=== PATIENT | female | born 1945 | race Caucasian/White ===

== ENCOUNTER → 2016-09-29 | Outpatient (CLI) | payer MEDICARE ==
--- NOTE | 2016-09-30 07:50 | MM ---
Reason for exam: screening (asymptomatic). Last mammogram was performed 1 year and 1 month ago. History: Patient is postmenopausal. Benign stereotactic core biopsy of the right breast, April 13, 2002. Physical Findings: A clinical breast exam by your physician is recommended on an annual basis and results should be correlated with mammographic findings. MG 3D Screening Mammo W/Cad Bilateral CC and MLO view(s) were taken. Prior study comparison: September 02, 2015, bilateral MG 3d work up w/cad [facility]. August 28, 2015, bilateral MG screening mammo w CAD. There are scattered fibroglandular densities. Previous mammotome biopsy within the right breast. Focal asymmetry stable outer left breast. No significant changes when compared with prior studies. ASSESSMENT: Benign, BI-RAD 2 RECOMMENDATION: Routine screening mammogram of both breasts in 1 year.
== END | disposition home or self-care (01) ==
LOC: RADMAMWWP 10:46
PROVIDERS: ATTEND Internal Medicine Geriatric Medicine
DX: Z12.31 Encounter for screening mammogram for malignant neoplasm of breast (principal)
CPT/HCPCS: 77063; G0202

== ENCOUNTER → 2017-11-29 | Outpatient (CLI) | payer MEDICARE ==
--- NOTE | 2017-11-30 09:04 | BD ---
EXAMINATION TYPE: Axial Bone Density DATE OF EXAM: 11/29/2017 COMPARISON: DEXA bone scan July 03, 2014 CLINICAL HISTORY: Postmenopausal female Height: 62 Weight: 170.1 FRAX RISK QUESTIONS: Alcohol (3 or more units per day): no Family History (Parent hip fracture): unsure of history Glucocorticoids (More than 3mos): no (Ex: prednisone, prednisolone, methylprednisolone, dexamethasone, and hydrocortisone). History of Fracture in Adulthood: yes Secondary Osteoporosis: 1. Type 1 Diabetes: no 2. Hyperthyroidism: no 3. Menopause before 45: no 4. Malnutrition: yes 5. Chronic liver disease: no Rheumatoid Arthritis: no Current Tobacco Use: no RISK FACTORS HISTORY OF: History of Wrist Fracture: left When: 2016 Family History of Osteoporosis: unsure Active: yes Diet low in dairy products/other sources of calcium: no Postmenopausal woman: age 52 Lost more than 2 inches in height since high school: no Frequent falls: no MEDICATIONS: gabapentin, meloxicam, reflux meds Thyroid Medications: levothyroxine How Lon years Additional History: pt has had almost all of her large intestine taken out EXAM MEASUREMENTS: Bone mineral densitometry was performed using the [employer] System. Bone mineral density as measured about the Lumbar spine is: ----- L1-L4(G/cm2): 1.075 T Score Values are as follows: ----- L2: -0.6 ----- L3: -0.7 ----- L4: -1.5 ----- L1-L4: -0.9 Bone mineral density has: decreased -3.0 % since study of: 07.03.2014 Bone mineral density about the R hip (g/cm2): 0.726 Bone mineral density about the L hip (g/cm2): 0.730 T Score values are as follows: -----R Neck: -2.2 -----L Neck: -2.2 -----R Total: -1.8 -----L Total: -1.8 Bone mineral density has: increased 0.4 % since study of: 07.03.2014 IMPRESSION: Osteopenia (T Score between -2.5 and -1) in both hips remains present. Bone density fairly stable fro m most recent study. There remains slightly increased risk of fracture and the patient may be considered for treatment. Re-Screen 2-5 years. NOTE: T-SCORE=SD OF THE YOUNG ADULT MEAN.
--- NOTE | 2017-12-01 11:03 | MM ---
Reason for exam: screening (asymptomatic). Last mammogram was performed 1 year and 2 months ago. History: Patient is postmenopausal. Benign stereotactic core biopsy of the right breast, April 13, 2002. Physical Findings: A clinical breast exam by your physician is recommended on an annual basis and results should be correlated with mammographic findings. MG 3D Screening Mammo W/Cad Bilateral CC and MLO view(s) were taken. Technologist: Quin Avila RT (R)(M) Prior study comparison: September 29, 2016, bilateral MG 3d screening mammo w/cad. September 02, 2015, bilateral MG 3d work up w/cad [facility]. There are scattered fibroglandular densities. No suspicious abnormality. No significant changes when compared with prior studies. ASSESSMENT: Negative, BI-RAD 1 RECOMMENDATION: Routine screening mammogram of both breasts in 1 year.
== END | disposition home or self-care (01) ==
LOC: RADMAMWWP 15:17
PROVIDERS: ATTEND Internal Medicine Geriatric Medicine
DX: Z12.31 Encounter for screening mammogram for malignant neoplasm of breast (principal); M85.852 Other specified disorders of bone density and structure, left thigh; M85.851 Other specified disorders of bone density and structure, right thigh
CPT/HCPCS: 77063; 77067; 77080

== ENCOUNTER 2018-09-21 11:09 | Emergency (ER) | payer MEDICARE ==
[2018-09-21 11:34] VITALS: TEMP 98.1
[2018-09-21] MEDS ORDERED: SODIUM CHLORIDE 0.9% 500 ML 500 ML IV STA (12:16)
[2018-09-21] MEDS ORDERED: ONDANSETRON 4 MG/2 ML VIAL IVP STA (12:17)
[2018-09-21] MEDS ORDERED: traMADol 50 MG TAB PO STA (12:17)
--- NOTE | 2018-09-21 12:23 | ED ---
Fall HPI - General Chief Complaint: Fall Stated Complaint: Fall, left side pain Time Seen by Provider: 09/21/18 12:09 Source: patient, RN notes reviewed Mode of arrival: wheelchair Limitations: no limitations - History of Present Illness Initial Comments: 73-year-old female presents emergency Department with chief complaint of trip and fall. Patient states she was cleaning states that she was walking backwards. Patient states that she tripped and fell. Patient states she struck her face on the corner of a door but also fell onto left-sided abdomen. Patient states she has severe abdominal pain. Patient denies any hematuria or dysuria. Patient denies any loss of consciousness that she knows of. Denies any back pain no upper extremity injuries no chest pain. - Related Data Home Medications Medication Instructions Recorded Confirmed Calcium Carb-Vit D 500Mg-200Un 1 tab PO DAILY 06/23/15 09/21/18 [Oscal 500+D] Meloxicam [Mobic] 7.5 mg PO BID 06/23/15 09/21/18 Multivit-Min/FA/Lycopen/Lutein 1 tab PO DAILY 06/23/15 09/21/18 [Centrum Silver Tablet] Omeprazole 40 mg PO AC-BRKFST 06/23/15 09/21/18 Atorvastatin Calcium [Lipitor] 10 mg PO HS 09/21/18 09/21/18 Citalopram Hydrobromide [CeleXA] 20 mg PO DAILY 09/21/18 09/21/18 Gabapentin [Neurontin] 100 mg PO QAM 09/21/18 09/21/18 Gabapentin [Neurontin] 200 mg PO HS 09/21/18 09/21/18 Levothyroxine Sodium [Synthroid] 100 mcg PO DAILY 09/21/18 09/21/18 clonazePAM 0.5 mg PO DAILY 09/21/18 09/21/18 Allergies Allergy/AdvReac Type Severity Reaction Status Date / Time codeine AdvReac Hallucinati Verified 09/21/18 12:22 ons opiates AdvReac Hallucinati Uncoded 09/21/18 11:34 ons Review of Systems ROS Statement: Those systems with pertinent positive or pertinent negative responses have been documented in the HPI. ROS Other: All systems not noted in ROS Statement are negative. Past Medical History Past Medical History: Fibromyalgia, Osteoarthritis (OA), Thyroid Disorder Additional Past Medical History / Comment(s): bowel History of Any Multi-Drug Resistant Organisms: None Reported Past Surgical History: Adenoidectomy, Bowel Resection, Cholecystectomy, Hernia Repair, Orthopedic Surgery, Tonsillectomy, Tubal Ligation Additional Past Surgical History / Comment(s): Bilat knee replacements, rotator cuff scope, Puja, Surgery on sinus, Colostomy and reveral 2013 [place] right breast,deviated septum,right hand arthoscopy,carpel tunnel right thumb bone removed replaced with tendon Past Anesthesia/Blood Transfusion Reactions: No Reported Reaction Past Psychological History: No Psychological Hx Reported Smoking Status: Never smoker Past Alcohol Use History: None Reported Past Drug Use History: None Reported - Past Family History Mother Family Medical History: Cancer General Exam Limitations: no limitations General appearance: alert, in no apparent distress Head exam: Present: atraumatic, normocephalic, normal inspection Eye exam: Present: normal appearance, PERRL, EOMI. Absent: scleral icterus, conjunctival injection, periorbital swelling ENT exam: Present: normal exam, normal oropharynx, mucous membranes moist, TM's normal bilaterally Neck exam: Present: normal inspection, full ROM. Absent: tenderness, meningismus, lymphadenopathy Respiratory exam: Present: normal lung sounds bilaterally. Absent: respiratory distress, wheezes, rales, rhonchi, stridor Cardiovascular Exam: Present: regular rate, normal rhythm, normal heart sounds. Absent: systolic murmur, diastolic murmur, rubs, gallop, clicks GI/Abdominal exam: Present: soft, tenderness (Moderate left-sided, left lower quadrant tenderness), normal bowel sounds. Absent: distended, guarding, rebound, rigid Extremities exam: Present: normal inspection, full ROM, normal capillary refill. Absent: tenderness, pedal edema, joint swelling, calf tenderness Back exam: Present: full ROM. Absent: tenderness, CVA tenderness (R), CVA tenderness (L), paraspinal tenderness Neurological exam: Present: alert, oriented X3, CN II-XII intact Skin exam: Present: warm, dry, intact, normal color. Absent: rash Course Vital Signs 09/21/18 09/21/18 11:31 13:27 Temperature 98.1 F Pulse Rate 58 L 60 Respiratory 16 20 Rate Blood Pressure 175/84 190/95 O2 Sat by Pulse 99 99 Oximetry Medical Decision Making - Medical Decision Making 73-year-old female presented emergency from for a trip and fall. Patient went left-sided abdominal pain, facial injury. CT of the head, neck and abdomen pelvis were ordered which shows no acute process. Patient has facial contusion, abdominal contusion. Patient we discharged return parameters discussed. - Lab Data Result diagrams: 09/21/18 12:49 09/21/18 12:49 Lab Results 09/21/18 09/21/18 09/21/18 Range/Units 12:49 12:49 13:43 WBC 10.6 (3.8-10.6) k/uL RBC 3.86 (3.80-5.40) m/uL Hgb 12.5 (11.4-16.0) gm/dL Hct 37.3 (34.0-46.0) % MCV 96.6 (80.0-100.0) fL MCH 32.4 (25.0-35.0) pg MCHC 33.5 (31.0-37.0) g/dL RDW 13.9 (11.5-15.5) % Plt Count 234 (150-450) k/uL Neutrophils % 74 % Lymphocytes % 16 % Monocytes % 6 % Eosinophils % 1 % Basophils % 1 % Neutrophils # 7.8 H (1.3-7.7) k/uL Lymphocytes # 1.7 (1.0-4.8) k/uL Monocytes # 0.6 (0-1.0) k/uL Eosinophils # 0.1 (0-0.7) k/uL Basophils # 0.1 (0-0.2) k/uL Sodium 141 (137-145) mmol/L Potassium 5.0 (3.5-5.1) mmol/L Chloride 109 H (98-107) mmol/L Carbon Dioxide 22 (22-30) mmol/L Anion Gap 10 mmol/L BUN 22 H (7-17) mg/dL Creatinine 1.45 H (0.52-1.04) mg/dL Est GFR (CKD-EPI)AfAm 41 (>60 ml/min/1.73 sqM) Est GFR (CKD-EPI)NonAf 36 (>60 ml/min/1.73 sqM) Glucose 89 (74-99) mg/dL Calcium 9.4 (8.4-10.2) mg/dL Total Bilirubin 0.9 (0.2-1.3) mg/dL AST 26 (14-36) U/L ALT 36 (9-52) U/L Alkaline Phosphatase 114 (38-126) U/L Total Protein 6.7 (6.3-8.2) g/dL Albumin 4.0 (3.5-5.0) g/dL Urine Color Yellow Urine Appearance Clear (Clear) Urine pH 5.5 (5.0-8.0) Ur Specific Proctor 1.020 (1.001-1.035) Urine Protein 1+ H (Negative) Urine Glucose (UA) Negative (Negative) Urine Ketones Negative (Negative) Urine Blood Negative (Negative) Urine Nitrite Negative (Negative) Urine Bilirubin Negative (Negative) Urine Urobilinogen <2.0 (<2.0) mg/dL Ur Leukocyte Esterase Moderate H (Negative) Urine WBC 61 H (0-5) /hpf Urine Bacteria Many H (None) /hpf Urine Mucus Rare H (None) /hpf Disposition Clinical Impression: Fall, Head injury, Abdominal contusion Disposition: HOME SELF-CARE Condition: Stable Instructions (If sedation given, give patient instructions): Fall Prevention for Older Adults (ED) Additional Instructions: Please return to the Emergency Department if symptoms worsen or any other concerns. Is patient prescribed a controlled substance at d/c from ED?: No Referrals: Crescencio Ott MD [Primary Care Provider] - 1-2 days Time of Disposition: 14:32
[2018-09-21 13:08] LABS: Basophils # (A) 0.1 k/uL (0-0.2); Basophils % (A) 1 %; Eosinophils # (A) 0.1 k/uL (0-0.7); Eosinophils % (A) 1 %; HCT 37.3 % (34.0-46.0); HGB 12.5 gm/dL (11.4-16.0); Lymphocytes # (A) 1.7 k/uL (1.0-4.8); Lymphocytes % (A) 16 %; MCH 32.4 pg (25.0-35.0); MCHC 33.5 g/dL (31.0-37.0); MCV 96.6 fL (80.0-100.0); Mean Platelet Volume 7.8; Monocytes # (A) 0.6 k/uL (0-1.0); Monocytes % (A) 6 %; Neutrophils # (A) 7.8 k/uL (1.3-7.7); Neutrophils % (A) 74 %; Platelet Count 234 k/uL (150-450); RBC 3.86 m/uL (3.80-5.40); RDW 13.9 % (11.5-15.5); WBC 10.6 k/uL (3.8-10.6)
[2018-09-21 13:20] LABS: Calcium 9.4 mg/dL (8.4-10.2); Total Bilirubin 0.9 mg/dL (0.2-1.3); Total Protein 6.7 g/dL (6.3-8.2)
[2018-09-21 13:29] VITALS: RESP 20
[2018-09-21 14:02] LABS: Appearance,Urine Clear (Clear); Bacteria,Urine Many /hpf; Bilirubin,Urine Negative (Negative); Blood,Urine Negative (Negative); Color,Urine Yellow; Glucose,Urine (UA) Negative (Negative); Ketones,Urine Negative (Negative); Leukocyte Esterase,Urine Moderate (Negative); Mucus,Urine Rare /hpf; Nitrite,Urine Negative (Negative); PH, Urine 5.5 (5.0-8.0); Protein,Urine 1+ (Negative); Urobilinogen,Urine <2.0 mg/dL (<2.0); WBC,Urine 61 /hpf (0-5)
--- NOTE | 2018-09-21 14:14 | CT ---
EXAMINATION TYPE: CT brain cspine wo con DATE OF EXAM: 09/21/2018 COMPARISON: CT brain September 14, 2014 HISTORY: Fall, Lt side CT DLP: 1244.1 mGycm. Automated Exposure Control for Dose Reduction was Utilized. TECHNIQUE: CT scan of the head and cervical spine are performed without contrast. FINDINGS: There is no acute intracranial hemorrhage or midline shift identified. Ventricular and gaines lcal prominence redemonstrated. Low-attenuation periventricular white matter again seen. The globes a re intact and the visualized sinuses are clear. The calvarium is intact. Cervical spine is visualized in its entirety from C1 through upper thoracic levels and demonstrates s light grade 1 retrolisthesis of C3 on C4 and grade 1 anterolisthesis of C5 on C6 without evidence of acute fracture or dislocation. Prevertebral soft tissue appears within normal limits. The C1-C2 art iculation is within normal limits on the coronal images. Vertebral body heights are maintained. There is mild to moderate disc space narrowing C3-C4 and C4-C5 levels with posterior disc herniations effacing anterior thecal sac at these levels on sagittal imag es. Review of axial images shows multilevel uncovertebral facet degenerative changes contributing to multilevel bilateral neural foraminal narrowing most prominent at left C5-C6 level. Normal sized thyr oid gland is not identified suspect surgically or congenitally atrophic. Correlate clinically. Lung a pices show no pneumothorax. IMPRESSION: 1. There is no acute fracture or dislocation evident in the cervical spine. 2. No acute intracranial hemorrhage or midline shift is seen. Stable mild diffuse cerebral atrophy an d chronic small vessel ischemic change.
--- NOTE | 2018-09-21 14:26 | CT ---
EXAMINATION TYPE: CT abdomen pelvis wo con DATE OF EXAM: 09/21/2018 HISTORY: Abdominal pain not further specified. CT DLP: 470.9 mGycm. Automated Exposure Control for Dose Reduction was Utilized. TECHNIQUE: CT scan of the abdomen and pelvis is performed without oral or IV contrast. COMPARISON: CT abdomen and pelvis June 25, 2015 FINDINGS: Within the limitations of a non-contrast study, the following observations are made. LUNG BASES: There is left basilar linear scarring and/or atelectasis redemonstrated. LIVER/GB: Cholecystectomy clips are redemonstrated. PANCREAS: Hypodense 1.2 cm pancreatic head lesion axial image 25 is small in size from prior study ax ial image 27. Etiology uncertain. Correlate clinically. SPLEEN: No significant abnormality is seen. ADRENALS: No significant abnormality is seen. KIDNEYS: No renal stones or hydronephrosis. BOWEL: Evaluation of bowel is suboptimal secondary to lack of enteric contrast. There is some gas-arnold led prominence of the transverse colon in the anterior upper to mid abdomen similar to prior but less prominent. Surgical sutures near this level proximal transverse colon axial image 28 are noted. Ther e is fluid filled prominence of the right: Suggesting diarrhea or colitis. Correlate clinically. GENITAL ORGANS: Anteverted uterus. LYMPH NODES: No greater than 1cm abdominal or pelvic lymph nodes are appreciated. OSSEOUS STRUCTURES: Disc herniation L5-S1 level sagittal image 59. Mild to moderate multilevel anteri or and lateral spurring in the lower thoracic spine. OTHER: Thinning of the rectus sheath and muscles anteriorly remains present IMPRESSION: Overall no bowel obstruction. Right-sided diarrhea or colitis. Persistent transverse colo sari gas-filled dilatation there are sutures less prominent than prior study.
[2018-09-21 15:08] VITALS: BP 164/69; PULSE 51
== END 2018-09-21 15:07 | disposition home or self-care (01) ==
LOC: EC 11:09
DX: S00.83XA Contusion of other part of head, initial encounter (principal); S30.1XXA Contusion of abdominal wall, initial encounter; M79.7 Fibromyalgia; M19.90 Unspecified osteoarthritis, unspecified site; E07.9 Disorder of thyroid, unspecified; Z90.49 Acquired absence of other specified parts of digestive tract; Z96.653 Presence of artificial knee joint, bilateral; Z98.51 Tubal ligation status; Z98.890 Other specified postprocedural states; Z79.1 Long term (current) use of non-steroidal anti-inflammatories (NSAID); Z79.890 Hormone replacement therapy; Z79.899 Other long term (current) drug therapy; Z88.5 Allergy status to narcotic agent; W01.198A Fall on same level from slipping, tripping and stumbling with subsequent striking against other object, initial encounter; Y92.009 Unspecified place in unspecified non-institutional (private) residence as the place of occurrence of the external cause; Y93.E5 Activity, floor mopping and cleaning; Y93.01 Activity, walking, marching and hiking
CPT/HCPCS: 99284; 96374; 36415; 80053; 85025; 81001; 72125; 70450; 74176; J2405

== ENCOUNTER → 2019-01-06 | Outpatient (CLI) | payer MEDICARE ==
--- NOTE | 2019-01-10 13:34 | MM ---
Reason for exam: screening (asymptomatic). Last mammogram was performed 1 year and 1 month ago. History: Patient is postmenopausal. Benign stereotactic core biopsy of the right breast, April 13, 2002. MG 3D Screening Mammo W/Cad Bilateral CC and MLO view(s) were taken. Prior study comparison: November 29, 2017, bilateral MG 3d screening mammo w/cad. September 29, 2016, bilateral MG 3d screening mammo w/cad. There are scattered fibroglandular densities. No significant new finding when compared with prior studies. ASSESSMENT: Negative, BI-RAD 1 RECOMMENDATION: Routine screening mammogram of both breasts in 1 year.
== END | disposition home or self-care (01) ==
LOC: RADMAMWWP 12:56
PROVIDERS: ATTEND Internal Medicine Geriatric Medicine
DX: Z12.31 Encounter for screening mammogram for malignant neoplasm of breast (principal)
CPT/HCPCS: 77063; 77067

== ENCOUNTER 2019-04-11 12:48 | Emergency (ER) | payer MEDICARE ==
--- NOTE | 2019-04-11 14:35 | ED ---
Lower Extremity Injury HPI - General Source: patient Mode of arrival: wheelchair Limitations: no limitations <Tatiana Shirley - Last Filed: 04/11/19 19:52> <Ben Syed - Last Filed: 04/12/19 16:17> - General Chief Complaint: Extremity Injury, Lower Stated Complaint: RT ARM PROBLEM, NOT ABLE TO STAND LEFT LEG Time Seen by Provider: 04/11/19 13:36 - History of Present Illness Initial Comments: Patient is a 73-year-old female presenting to the emergency Department with complaints of pain in her left hip since yesterday. 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 Patient states she put her leg back in the car sat for a minute and then attempted to get out of a can and resulted in the same kind of pain. Patient has been walking with a cane since yesterday secondary to the pain. Patient states the pain does radiate around to her left lower back and on top of her gluteal. Patient denies any previous injuries or surgeries to her left hip. Patient does have bilateral knee replacements. Patient denies fever, chills, recent travel, recent surgeries. Patient has no other complaints at this time. Upon arrival to ER, vital signs are stable. (Tatiana Shirley) - Related Data Home Medications Medication Instructions Recorded Confirmed Calcium Carb-Vit D 500Mg-200Un 1 tab PO DAILY 06/23/15 04/11/19 [Oscal 500+D] Multivit-Min/FA/Lycopen/Lutein 1 tab PO DAILY 06/23/15 04/11/19 [Centrum Silver Tablet] Atorvastatin Calcium [Lipitor] 10 mg PO HS 09/21/18 04/11/19 Citalopram Hydrobromide [CeleXA] 20 mg PO DAILY 09/21/18 04/11/19 Levothyroxine Sodium [Synthroid] 100 mcg PO DAILY 09/21/18 04/11/19 Albuterol Inhaler [Ventolin Hfa 1 - 2 puff INHALATION RT-Q6H PRN 04/11/19 04/11/19 Inhaler] Magnesium 200 mg PO BID 04/11/19 04/11/19 Previous Rx's Medication Instructions Recorded Meloxicam [Mobic] 7.5 mg PO BID 15 Days #30 tab 04/11/19 methylPREDNISolone [Medrol Dose 4 mg PO DIRECTED #1 pack 04/11/19 Pack] Allergies Allergy/AdvReac Type Severity Reaction Status Date / Time codeine AdvReac Hallucinati Verified 04/11/19 14:26 ons opiates AdvReac Hallucinati Uncoded 09/21/18 11:34 ons Review of Systems ROS Other: All systems not noted in ROS Statement are negative. <Tatiana Shirley - Last Filed: 04/11/19 19:52> ROS Other: All systems not noted in ROS Statement are negative. <Ben Syed - Last Filed: 04/12/19 16:17> ROS Statement: Those systems with pertinent positive or pertinent negative responses have been documented in the HPI. Past Medical History Past Medical History: Fibromyalgia, Osteoarthritis (OA), Thyroid Disorder Additional Past Medical History / Comment(s): bowel History of Any Multi-Drug Resistant Organisms: None Reported Past Surgical History: Adenoidectomy, Bowel Resection, Cholecystectomy, Hernia Repair, Orthopedic Surgery, Tonsillectomy, Tubal Ligation Additional Past Surgical History / Comment(s): Bilat knee replacements, rotator cuff scope, Puja, Surgery on sinus, Colostomy and reveral 2014 [place] right breast,deviated septum,right hand arthoscopy,carpel tunnel right thumb bone removed replaced with tendon Past Anesthesia/Blood Transfusion Reactions: No Reported Reaction Past Psychological History: No Psychological Hx Reported Smoking Status: Never smoker Past Alcohol Use History: None Reported Past Drug Use History: None Reported - Past Family History Mother Family Medical History: Cancer <Tatiana Shirley - Last Filed: 04/11/19 19:52> General Exam Limitations: no limitations <Tatiana Shirley - Last Filed: 04/11/19 19:52> - General Exam Comments Initial Comments: GENERAL: Well-appearing, well-nourished and in no acute distress. HEAD: Atraumatic, normocephalic. EYES: Pupils equal round and reactive to light, extraocular movements intact, sclera anicteric, conjunctiva are normal. ENT: Nares patent, oropharynx clear without exudates. Moist mucous membranes. NECK: Normal range of motion, supple without lymphadenopathy or JVD. LUNGS: Breath sounds clear to auscultation bilaterally and equal. No wheezes rales or rhonchi. HEART: Regular rate and rhythm without murmurs, rubs or gallops. ABDOMEN: Soft, nontender, normoactive bowel sounds. No guarding, no rebound. No masses appreciated. EXTREMITIES: Pain with palpation of the anterior and lateral left hip. Pain with passive and active range of motion of the hip. Range of motion is limited secondary to pain and right. Patient is neurovascular intact. There is no swelling of the lower leg. Patient has mild pain to palpation of the left SI joint. NEUROLOGICAL: Cranial nerves II through XII grossly intact. Normal speech. PSYCH: Normal mood, normal affect. SKIN: Warm, Dry, normal turgor, no rashes or lesions noted. (Tatiana Shirley) Course <Ben Syed - Last Filed: 04/12/19 16:17> Vital Signs 04/11/19 04/11/19 04/11/19 13:12 15:17 15:50 Temperature 98.1 F 98.2 F Pulse Rate 62 62 63 Respiratory 18 16 18 Rate Blood Pressure 154/78 169/103 163/92 O2 Sat by Pulse 99 100 100 Oximetry - Reevaluation(s) Reevaluation #1: 04/12/19 16:17 PA supervision: I proceeded [id number] evaluation the patient did discuss the findings with her and her family. Patient's clinical exam is consistent with sciatica did have reproducible tenderness palpation of the SI joint and buttock consistent with the sciatica with. No other neuro findings were appreciated on my exam. I do agree with the assessment and plan (Ben Syed) Medical Decision Making <Tatiana Shirley - Last Filed: 04/11/19 19:52> - Medical Decision Making Patient is a 73-year-old female presenting with left hip and left low back pain that started yesterday. Patient has no prior history of her lumbar spine or left hip. Patient does have bilateral knee replacements. X-rays left hip revealed no acute abnormalities. There is some mild joint space narrowing. Lumbar spine x-rays show a facet arthroplasty the with grade 1 anterolishesis at L5-S1. No vertebral compression collapse. Discussed with patient this is most likely left-sided sciatica and/or lumbar strain. Patient will be given Toradol and a short course of steroids. Patient stable for discharge at this time and she doesn't agreement with this plan and care. Case is discussed with Dr. Syed who evaluated the patient and agrees with this plan of care. Return parameters were discussed with the patient and she verbalized understanding. (Tatiana Shirley) Disposition Is patient prescribed a controlled substance at d/c from ED?: No <Tatiana Shirley - Last Filed: 04/11/19 19:52> <Ben Syed - Last Filed: 04/12/19 16:17> Clinical Impression: Left-sided low back pain with sciatica, Left hip pain Disposition: HOME SELF-CARE Condition: Stable Instructions (If sedation given, give patient instructions): Sciatica (ED) Additional Instructions: Please return to the Emergency Department if symptoms worsen or any other concerns. Take steroids and anti-inflammatories as discussed. Follow up with PCP if symptoms do not improve in 1-2 weeks. Prescriptions: methylPREDNISolone [Medrol Dose Pack] 4 mg PO DIRECTED #1 pack Meloxicam [Mobic] 7.5 mg PO BID 15 Days #30 tab Referrals: Crescencio Ott MD [Primary Care Provider] - 1-2 days
--- NOTE | 2019-04-11 14:56 | XR ---
EXAMINATION TYPE: XR lumbar spine 2 or 3V DATE OF EXAM: 04/11/2019 COMPARISON: 04/28/2018 HISTORY: 73-year-old female with pain TECHNIQUE: 3 views FINDINGS: Cholecystectomy clips. Levoconvex scoliotic curvature. Facet arthropathy throughout the lumbar spine. Grade 1 anterolisthesis L5-S1. Vertebral body heights are preserved. Remaining alignment is maintain ed. Atherosclerotic calcifications throughout the aorta. IMPRESSION: Facet arthropathy with grade 1 anterolisthesis at L5-S1. Levoconvex scoliosis redemonstrated. No vert ebral compression collapse.
--- NOTE | 2019-04-11 14:57 | XR ---
EXAMINATION TYPE: XR Hip Complete LT DATE OF EXAM: 04/11/2019 COMPARISON: NONE HISTORY: 73-year-old female with pain TECHNIQUE: 2 views FINDINGS: Mild axial joint space narrowing and mild marginal spurring about the acetabulum. No acute fracture, subluxation, dislocation. Probable phleboliths lateral left hip soft tissues. IMPRESSION: Mild degenerative joint space narrowing of the left hip. No acute osseous abnormality seen.
[2019-04-11] MEDS ORDERED: MELOXICAM 7.5 MG TAB PO STA (14:58)
[2019-04-11] MEDS ORDERED: ACETAMINOPHEN TAB 325 MG TAB PO STA (14:59)
[2019-04-11] MEDS ORDERED: KETOROLAC 30 MG/ML 1 ML VIAL IM STA (15:37)
[2019-04-11 15:53] VITALS: BP 163/92; PULSE 63; RESP 18; TEMP 98.2
== END 2019-04-11 15:50 | disposition home or self-care (01) ==
LOC: EC 12:48
DX: M54.42 Lumbago with sciatica, left side (principal); M25.852 Other specified joint disorders, left hip; M43.17 Spondylolisthesis, lumbosacral region; M19.90 Unspecified osteoarthritis, unspecified site; E07.9 Disorder of thyroid, unspecified; Z88.5 Allergy status to narcotic agent; Z79.890 Hormone replacement therapy; Z79.899 Other long term (current) drug therapy; Z96.653 Presence of artificial knee joint, bilateral; X50.9XXA Other and unspecified overexertion or strenuous movements or postures, initial encounter; Y93.89 Activity, other specified; Y92.810 Car as the place of occurrence of the external cause
CPT/HCPCS: 72100; 73502; 99283; 96372; J1885

== ENCOUNTER → 2020-02-15 | Outpatient (CLI) | payer MEDICARE ==
--- NOTE | 2020-02-22 09:32 | MM ---
Reason for exam: screening (asymptomatic). Last mammogram was performed 1 year and 1 month ago. History: Patient is postmenopausal. Benign stereotactic core biopsy of the right breast, April 13, 2002. Physical Findings: A clinical breast exam by your physician is recommended on an annual basis and results should be correlated with mammographic findings. MG 3D Screening Mammo W/Cad Bilateral CC and MLO view(s) were taken. Prior study comparison: January 06, 2019, bilateral MG 3d screening mammo w/cad. November 29, 2017, bilateral MG 3d screening mammo w/cad. There are scattered fibroglandular densities. Fibroglandular tissue remains concentrated in the upper outer quadrants. No significant changes when compared with prior studies. ASSESSMENT: Benign, BI-RAD 2 RECOMMENDATION: Routine screening mammogram of both breasts in 1 year.
== END | disposition home or self-care (01) ==
LOC: RADMAMWWP 14:23
PROVIDERS: ATTEND Internal Medicine Geriatric Medicine
DX: Z12.31 Encounter for screening mammogram for malignant neoplasm of breast (principal)
CPT/HCPCS: 77063; 77067

== ENCOUNTER 2020-05-27 14:25 | Emergency (ER) | payer MEDICARE ==
[2020-05-27] MEDS ORDERED: SODIUM CHLORIDE 0.9% 500 ML 500 ML IV STA (15:36)
[2020-05-27 16:08] LABS: Basophils % (A) 0 %; Eosinophils # (A) 0.1 k/uL (0-0.7); Eosinophils % (A) 1 %; HCT 37.8 % (34.0-46.0); HGB 12.8 gm/dL (11.4-16.0); Lymphocytes # (A) 0.8 k/uL (1.0-4.8); Lymphocytes % (A) 9 %; MCHC 33.8 g/dL (31.0-37.0); MCV 97.4 fL (80.0-100.0); Mean Platelet Volume 7.5; Monocytes # (A) 0.4 k/uL (0-1.0); Monocytes % (A) 5 %; Neutrophils # (A) 7.6 k/uL (1.3-7.7); Neutrophils % (A) 84 %; Platelet Count 252 k/uL (150-450); RBC 3.89 m/uL (3.80-5.40); RDW 12.6 % (11.5-15.5); WBC 9.1 k/uL (3.8-10.6)
[2020-05-27 16:23] LABS: Albumin 3.8 g/dL (3.5-5.0); Magnesium 1.8 mg/dL (1.6-2.3); Potassium 4.1 mmol/L (3.5-5.1); Total Bilirubin 0.3 mg/dL (0.2-1.3); Total Protein 6.3 g/dL (6.3-8.2)
--- NOTE | 2020-05-27 16:40 | ED ---
General Adult HPI - General Chief complaint: Head Injury Stated complaint: Fall/Head Injury-Sent by PCP Time Seen by Provider: 05/27/20 15:12 Source: patient, RN notes reviewed Mode of arrival: wheelchair Limitations: no limitations - History of Present Illness Initial comments: 74-year-old female with a past medical history of fibromyalgia, thyroid disorder presents to the emergency room for a chief complaint of head injury. Patient reports that 10 days ago she fell. Patient states that she was getting up from the chair and has bad shoulders so could not push off with her arms. States she was using her feet to anchor herself under the table and tripped. Patient fell and hit her head. She did knock herself out and woke up under her [place] tree. States that she does not take blood thinners and was not evaluated at that time. Patient states she has been having headaches with decreased appetite and weakness. She was seen by Dr. Hooks, her surgeon today for shoulder pain and he recommended she come to the ER given this fall. Patient has not fallen since. Patient also reports as is noted in the triage note that she couldn't open the left side of her mouth yesterday however this was because she was having pain in the TMJ area and was getting locked up. She denies any drooping or focal weakness. Patient has no other complaints at this time including shortness of breath, chest pain, abdominal pain, nausea or vomiting, or visual changes. - Related Data Home Medications Medication Instructions Recorded Confirmed Calcium Carb-Vit D 500Mg-200Un 1 tab PO DAILY 06/23/15 04/11/19 [Oscal 500+D] Multivit-Min/FA/Lycopen/Lutein 1 tab PO DAILY 06/23/15 04/11/19 [Centrum Silver Tablet] Atorvastatin Calcium [Lipitor] 10 mg PO HS 09/21/18 04/11/19 Citalopram Hydrobromide [CeleXA] 20 mg PO DAILY 09/21/18 04/11/19 Levothyroxine Sodium [Synthroid] 100 mcg PO DAILY 09/21/18 04/11/19 Albuterol Inhaler (Mhu) [Ventolin 1 - 2 puff INHALATION RT-Q6H PRN 04/11/19 04/11/19 Hfa Inhaler] Magnesium 200 mg PO BID 04/11/19 04/11/19 Previous Rx's Medication Instructions Recorded Meloxicam [Mobic] 7.5 mg PO BID 15 Days #30 tab 04/11/19 methylPREDNISolone [Medrol Dose 4 mg PO DIRECTED #1 pack 04/11/19 Pack] Cephalexin [Keflex] 500 mg PO BID 7 Days #14 cap 05/27/20 Allergies Allergy/AdvReac Type Severity Reaction Status Date / Time codeine AdvReac Hallucinati Verified 05/27/20 14:40 ons opiates AdvReac Hallucinati Uncoded 05/27/20 14:40 ons Review of Systems ROS Statement: Those systems with pertinent positive or pertinent negative responses have been documented in the HPI. ROS Other: All systems not noted in ROS Statement are negative. Past Medical History Past Medical History: Fibromyalgia, Osteoarthritis (OA), Thyroid Disorder Additional Past Medical History / Comment(s): bowel History of Any Multi-Drug Resistant Organisms: None Reported Past Surgical History: Adenoidectomy, Bowel Resection, Cholecystectomy, Hernia Repair, Orthopedic Surgery, Tonsillectomy, Tubal Ligation Additional Past Surgical History / Comment(s): Bilat knee replacements, rotator cuff scope, Puja, Surgery on sinus, Colostomy and reveral 2014 [place] right breast,deviated septum,right hand arthoscopy,carpel tunnel right thumb bone removed replaced with tendon Past Anesthesia/Blood Transfusion Reactions: No Reported Reaction Past Psychological History: No Psychological Hx Reported Past Alcohol Use History: None Reported Past Drug Use History: None Reported - Past Family History Mother Family Medical History: Cancer General Exam Limitations: no limitations General appearance: alert, in no apparent distress Head exam: Present: atraumatic, normocephalic, normal inspection Eye exam: Present: normal appearance, PERRL, EOMI. Absent: scleral icterus, conjunctival injection, periorbital swelling ENT exam: Present: normal exam, mucous membranes moist Neck exam: Present: normal inspection, full ROM. Absent: tenderness, meningismus, lymphadenopathy Respiratory exam: Present: normal lung sounds bilaterally. Absent: respiratory distress, wheezes, rales, rhonchi, stridor Cardiovascular Exam: Present: regular rate, normal rhythm, normal heart sounds. Absent: systolic murmur, diastolic murmur, rubs, gallop, clicks GI/Abdominal exam: Present: soft, normal bowel sounds. Absent: distended, tenderness, guarding, rebound, rigid Neurological exam: Present: alert, oriented X3, normal gait, other (GCS 15) Expanded Patient oriented to: Present: person, place, time Speech: Present: fluid speech Cranial nerves: EOM's Intact: Normal, Tongue Deviation: Normal, Nystagmus: No rmal, Facial Sensation: Normal Motor strength exam: RUE: 5, LUE: 5, RLE: 5, LLE: 5 Eye Response: (4) open spontaneously Motor Response: (6) obeys commands Verbal Response: (5) oriented Dominic Total: 15 Course Vital Signs 05/27/20 05/27/20 14:37 19:13 Temperature 98.3 F 98.1 F Pulse Rate 82 64 Respiratory 20 18 Rate Blood Pressure 127/63 143/69 O2 Sat by Pulse 100 98 Oximetry EKG Findings - EKG Comments: EKG Findings:: Normal sinus rhythm, ventricular rate 66, LA interval 122, QTc 413 Medical Decision Making - Medical Decision Making HPI physical exam as documented. Patient is well-appearing. Vitals are stable. CBC is unremarkable. CMP does show chronic kidney disease which is consistent with patient's previous laboratory evaluation. Urinalysis does show evidence of infection with [address] brain was obtained that shows an old left basal ganglion lacunar infarct. No acute intracranial process. She was able to ambulate to the bathroom without difficulty. At this time patient may have symptoms of concussion given her headaches. She also be treated for urinary tract infection which may cause weakness as patient has felt somewhat weak over the past week or so. She will follow-up with her doctor. She'll return here for any worsening symptoms. - Lab Data Result diagrams: 05/27/20 16:04 05/27/20 16:04 Lab Results 05/27/20 05/27/20 05/27/20 Range/Units 16:04 16:04 16:08 WBC 9.1 (3.8-10.6) k/uL RBC 3.89 (3.80-5.40) m/uL Hgb 12.8 (11.4-16.0) gm/dL Hct 37.8 (34.0-46.0) % MCV 97.4 (80.0-100.0) fL MCH 33.0 (25.0-35.0) pg MCHC 33.8 (31.0-37.0) g/dL RDW 12.6 (11.5-15.5) % Plt Count 252 (150-450) k/uL MPV 7.5 Neutrophils % 84 % Lymphocytes % 9 % Monocytes % 5 % Eosinophils % 1 % Basophils % 0 % Neutrophils # 7.6 (1.3-7.7) k/uL Lymphocytes # 0.8 L (1.0-4.8) k/uL Monocytes # 0.4 (0-1.0) k/uL Eosinophils # 0.1 (0-0.7) k/uL Basophils # 0.0 (0-0.2) k/uL Sodium 138 (137-145) mmol/L Potassium 4.1 (3.5-5.1) mmol/L Chloride 108 H (98-107) mmol/L Carbon Dioxide 21 L (22-30) mmol/L Anion Gap 9 mmol/L BUN 37 H (7-17) mg/dL Creatinine 1.79 H (0.52-1.04) mg/dL Est GFR (CKD-EPI)AfAm 32 (>60 ml/min/1.73 sqM) Est GFR (CKD-EPI)NonAf 28 (>60 ml/min/1.73 sqM) Glucose 107 H (74-99) mg/dL Calcium 9.0 (8.4-10.2) mg/dL Magnesium 1.8 (1.6-2.3) mg/dL Total Bilirubin 0.3 (0.2-1.3) mg/dL AST 33 (14-36) U/L ALT 36 H (4-34) U/L Alkaline Phosphatase 157 H (38-126) U/L Total Protein 6.3 (6.3-8.2) g/dL Albumin 3.8 (3.5-5.0) g/dL Urine Color Urine Appearance (Clear) Urine pH (5.0-8.0) Ur Specific [place] (1.001-1.035) Urine Protein (Negative) Urine Glucose (UA) (Negative) Urine Ketones (Negative) Urine Blood (Negative) Urine Nitrite (Negative) Urine Bilirubin (Negative) Urine Urobilinogen (<2.0) mg/dL Ur Leukocyte Esterase (Negative) Urine RBC (0-5) /hpf Urine WBC (0-5) /hpf Amorphous Sediment (None) /hpf Urine Bacteria (None) /hpf Hyaline Casts (0-2) /lpf Urine Mucus (None) /hpf Coronavirus (PCR) Not Detected (Not Detectd) 05/27/20 Range/Units 17:37 WBC (3.8-10.6) k/uL RBC (3.80-5.40) m/uL Hgb (11.4-16.0) gm/dL Hct (34.0-46.0) % MCV (80.0-100.0) fL MCH (25.0-35.0) pg MCHC (31.0-37.0) g/dL RDW (11.5-15.5) % Plt Count (150-450) k/uL MPV Neutrophils % % Lymphocytes % % Monocytes % % Eosinophils % % Basophils % % Neutrophils # (1.3-7.7) k/uL Lymphocytes # (1.0-4.8) k/uL Monocytes # (0-1.0) k/uL Eosinophils # (0-0.7) k/uL Basophils # (0-0.2) k/uL Sodium (137-145) mmol/L Potassium (3.5-5.1) mmol/L Chloride (98-107) mmol/L Carbon Dioxide (22-30) mmol/L Anion Gap mmol/L BUN (7-17) mg/dL Creatinine (0.52-1.04) mg/dL Est GFR (CKD-EPI)AfAm (>60 ml/min/1.73 sqM) Est GFR (CKD-EPI)NonAf (>60 ml/min/1.73 sqM) Glucose (74-99) mg/dL Calcium (8.4-10.2) mg/dL Magnesium (1.6-2.3) mg/dL Total Bilirubin (0.2-1.3) mg/dL AST (14-36) U/L ALT (4-34) U/L Alkaline Phosphatase (38-126) U/L Total Protein (6.3-8.2) g/dL Albumin (3.5-5.0) g/dL Urine Color Light Yellow Urine Appearance Cloudy H (Clear) Urine pH 5.0 (5.0-8.0) Ur Specific [place] 1.008 (1.001-1.035) Urine Protein Trace H (Negative) Urine Glucose (UA) Negative (Negative) Urine Ketones Negative (Negative) Urine Blood Negative (Negative) Urine Nitrite Negative (Negative) Urine Bilirubin Negative (Negative) Urine Urobilinogen <2.0 (<2.0) mg/dL Ur Leukocyte Esterase Large H (Negative) Urine RBC 3 (0-5) /hpf Urine WBC 29 H (0-5) /hpf Amorphous Sediment Rare H (None) /hpf Urine Bacteria Occasional H (None) /hpf Hyaline Casts 4 H (0-2) /lpf Urine Mucus Rare H (None) /hpf Coronavirus (PCR) (Not Detectd) Disposition Clinical Impression: Head injury, UTI (urinary tract infection) Disposition: HOME SELF-CARE Condition: Good Instructions (If sedation given, give patient instructions): Urinary Tract Infection in Women (ED), Concussion (ED) Additional Instructions: Please take antibiotic as directed. Please follow-up with your doctor in one to 2 days. Please return to the emergency room if you have any worsening symptoms. Prescriptions: Cephalexin [Keflex] 500 mg PO BID 7 Days #14 cap Is patient prescribed a controlled substance at d/c from ED?: No Referrals: Crescencio Ott MD [Primary Care Provider] - 1-2 days Time of Disposition: 18:25
--- NOTE | 2020-05-27 17:15 | CT ---
EXAMINATION TYPE: CT brain wo con DATE OF EXAM: 05/27/2020 COMPARISON: 09/21/2018 INDICATION: Weakness and falls DLP: 1068.4 mGycm, Automated exposure control for dose reduction was used. CONTRAST: None CT of the brain is performed utilizing 3 mm thick sections through the posterior fossa and 3 mm thick sections through the remaining calvarium. Study is performed within 24 hours of arrival to the hosp [facility]. No abnormal hyperdensity is present to suggest an acute intracranial hemorrhage. No mass lesion is evident. No acute infarcts are evident. Small old lacunar infarct may be within the left basal ganglion. This was present previously Ventricles and sulci are appropriate for the patient age. Paranasal sinuses and mastoid air cells within the [id number] are clear. IMPRESSIONS: 1. Old left basal ganglion lacunar infarct. 2. No acute intracranial process.
[2020-05-27 17:52] LABS: Amorphous Sediment,Urine Rare /hpf; Appearance,Urine Cloudy (Clear); Bacteria,Urine Occasional /hpf; Bilirubin,Urine Negative (Negative); Blood,Urine Negative (Negative); Color,Urine Light Yellow; Glucose,Urine (UA) Negative (Negative); Hyaline Casts,Urine 4 /lpf (0-2); Ketones,Urine Negative (Negative); Leukocyte Esterase,Urine Large (Negative); Mucus,Urine Rare /hpf; Nitrite,Urine Negative (Negative); Protein,Urine Trace (Negative); RBC,Urine 3 /hpf (0-5); Specific Gravity,Urine 1.008 (1.001-1.035); Urobilinogen,Urine <2.0 mg/dL (<2.0); WBC,Urine 29 /hpf (0-5)
[2020-05-27] MEDS ORDERED: CEPHALEXIN 500MG STARTER PACK 4 CAP BTL PO STA (18:25)
[2020-05-27 19:14] VITALS: BP 143/69; PULSE 64; RESP 18; TEMP 98.1
== END 2020-05-27 19:14 | disposition home or self-care (01) ==
LOC: EC 14:25
DX: S09.90XA Unspecified injury of head, initial encounter (principal); N39.0 Urinary tract infection, site not specified; E07.9 Disorder of thyroid, unspecified; Z20.828 Contact with and (suspected) exposure to other viral communicable diseases; Z79.890 Hormone replacement therapy; Z88.5 Allergy status to narcotic agent; Z90.49 Acquired absence of other specified parts of digestive tract; Z90.89 Acquired absence of other organs; Z96.653 Presence of artificial knee joint, bilateral; W01.10XA Fall on same level from slipping, tripping and stumbling with subsequent striking against unspecified object, initial encounter
CPT/HCPCS: 36415; 70450; 80053; 81001; 83735; 85025; 87077; 87086; 87186; 87635; 93005; 99284

== ENCOUNTER → 2022-09-22 | Outpatient (CLI) | payer MEDICARE ==
--- NOTE | 2022-09-23 08:29 | BD ---
EXAMINATION TYPE: Axial Bone Density DATE OF EXAM: 09/22/2022 CLINICAL HISTORY: 77 years old Female. ICD-10 CODE: M81.0 Osteoporosis Height: 61 Weight: 161 FRAX RISK QUESTIONS: Family History (Parent hip fracture): adopted History of Fracture in Adulthood: yes lt wrist Secondary Osteoporosis: no Rheumatoid Arthritis: yes RISK FACTORS HISTORY OF: History of Wrist Fracture: yes, left When: 1990 Family History of Osteoporosis: adopted Active: yes Diet low in dairy products/other sources of calcium: no Postmenopausal woman: yes Lost more than 2 inches in height since high school: no Frequent falls: more lately Poor Health: no MEDICATIONS: Thyroid Medications: yes Which medication: Levothyroxine How Lon+ years Additional Medications: yes vit d, Rheumatoid meds, hbp EXAM MEASUREMENTS: Bone mineral densitometry was performed using the [employer] System. Bone mineral density as measured about the Lumbar spine is: ----- L1-L4(G/cm2): 1.049 T Score Values are as follows: ----- L1: -1.7 ----- L2: -1.4 ----- L3: -0.8 ----- L4: -0.7 ----- L1-L4: -1.1 Z Score Values are as follows: ----- L1: -0.3 ----- L2: 0.0 ----- L3: 0.6 ----- L4: 0.7 ----- L1-L4: 0.3 Bone mineral density has: Decreased -2.4% since study of: 11/29/2017 Bone mineral density about the R hip (g/cm2): 0.708 Bone mineral density about the L hip (g/cm2): 0.644 T Score values are as follows: -----R Neck: -2.7 -----L Neck: -2.9 -----R Total: -2.4 -----L Total: -2.9 Z Score values are as follows: -----R Neck: -1.0 -----L Neck: -1.2 -----R Total: -0.8 -----L Total: -1.2 Bone mineral density has: Decreased -13.0% since study of: 11/29/2017 FRAX%s: The graph provided illustrates a 37.2% chance for a major osteoporotic fx and a 14.9% chance for the hips probability for fx in 10 years time. IMPRESSION: Osteoporosis (T Score less than -2.5). There is increased fracture risk and therapy is usually indicated based on age. Re-Screen 1-2 years. NOTE: T-SCORE=SD OF THE YOUNG ADULT MEAN.
--- NOTE | 2022-09-23 14:38 | MM ---
Reason for Exam: Screening (asymptomatic). Last mammogram was performed 2 year(s) and 7 month(s) ago. Patient History: Menarche at age 12. First Full-Term at age 19. Postmenopausal. Patient used Hormonal Contraceptives for 3 years. 04/13/2002, Benign Stereotactic Core Biopsy on the right side. Risk Values: Mable 5 year model risk: 1.5%. NCI Lifetime model risk: 2.9%. Prior Study Comparison: 11/29/2017 Bilateral Screening Mammogram, [facility]. 01/06/2019 Bilateral Screening Mammogram, [facility]. 02/15/2020 Bilateral Screening Mammogram, [facility]. Tissue Density: There are scattered fibroglandular densities. Findings: Analyzed By CAD. There is no suspicious group of microcalcifications or new suspicious mass in either breast. Overall Assessment: Negative, BI-RAD 1 Management: Screening Mammogram of both breasts in 1 year. A clinical breast exam by your physician is recommended on an annual basis and results should be correlated with mammographic findings. [facility] will attempt to contact patient to return for supplemental views and ultrasound if indicated. Electronically signed and approved by: Ben Pete DO
== END | disposition home or self-care (01) ==
LOC: RADMAMWWP 14:50
PROVIDERS: ATTEND Internal Medicine Geriatric Medicine
DX: Z12.31 Encounter for screening mammogram for malignant neoplasm of breast (principal); M85.89 Other specified disorders of bone density and structure, multiple sites; M81.0 Age-related osteoporosis without current pathological fracture; Z78.0 Asymptomatic menopausal state
CPT/HCPCS: 77063; 77067; 77080

== ENCOUNTER → 2023-06-24 | Outpatient (CLI) | payer MEDICARE ==
--- NOTE | 2023-06-28 11:52 | XR ---
EXAMINATION TYPE: XR KUB DATE OF EXAM: 06/24/2023 11:39 AM CLINICAL INDICATION:Female, 77 years old with history of N20.0 N20.1 Calculus kidney ureter; [facility] COMPARISON: None. TECHNIQUE: Supine radiographic view/s of the abdomen/pelvis obtained. FINDINGS: The bowel gas pattern is nonspecific, likely nonobstructive without dilated loops of small or large b owel. Fecal material and gas are demonstrated throughout the colon and rectum. Mild/moderate colonic stool burden. Suspected bowel anastomosis in the right mid abdomen. Cholecystectomy clips. Kidneys are obscured by bowel contents. There are a couple of calcific foci projecting over the right kidney up to 4 mm in size, suspicious for renal calculi. No definite calculi seen along the course o f the ureters. There are pelvic phleboliths. No gross evidence of organomegaly. No evidence of pneumoperitoneum in the limitations of supine techn ique. Osseous structures appear grossly intact. Moderate degenerative changes of the spine and mid sherie mbar levoscoliosis. Mild bilateral hip arthropathy. IMPRESSION: 1. Nonspecific, likely nonobstructive bowel gas pattern. Mild to moderate colonic stool burden. 2. Possible small right renal calculi.
== END | disposition home or self-care (01) ==
LOC: RADXRMAIN 11:10
PROVIDERS: ATTEND Urology
DX: N20.2 Calculus of kidney with calculus of ureter (principal); R19.5 Other fecal abnormalities
CPT/HCPCS: 74018

== ENCOUNTER → 2023-07-01 | Outpatient (CLI) | payer MEDICARE ==
--- NOTE | 2023-07-01 11:24 | CT ---
EXAMINATION TYPE: CT abdomen pelvis wo con DATE OF EXAM: 07/01/2023 HISTORY: Unspecified renal colic, pt c/o back pain, LT flank pain, pain urinating. Renal stone protoc ol CT DLP: 961 mGycm. Automated Exposure Control for Dose Reduction was Utilized. TECHNIQUE: CT scan of the abdomen and pelvis is performed without oral or IV contrast. COMPARISON: Prior CT September 21, 2018 FINDINGS: Within the limitations of a non-contrast study, the following observations are made. LUNG BASES: No significant abnormality is appreciated. LIVER/GB: Cholecystectomy clips are redemonstrated. PANCREAS: Stable 1.3 cm hypodense lesion in the pancreatic head axial image 54. SPLEEN: Slightly smaller spleen with lobulated peripheral contour containing faint curvilinear calcif ications. ADRENALS: No significant abnormality is seen. KIDNEYS: Cortical thinning bilaterally. No renal stones or hydronephrosis seen bilaterally. Findings consistent with product of chronic medical renal disease. No intraluminal calculus in the bladder. BOWEL: Ligament of Treitz is not in normal position. Findings consistent with underlying malrotation. No suspicious small or large bowel dilatation. Slight gaseous prominence of the transverse colon in the midabdomen with air and focal eventration. Surgical sutures to the right of this. Findings simila r to prior study. Surgical sutures in the distal colon is redemonstrated near axial image 101. A few diverticula in the sigmoid colon in the pelvis. No CT evidence for acute epiglottitis. GENITAL ORGANS: No gross abnormality seen. LYMPH NODES: No greater than 1cm abdominal or pelvic lymph nodes are appreciated. OSSEOUS STRUCTURES: Slight scoliotic curvature. Posterior disc herniation L5-S1 level. OTHER: Mild/moderate calcified plaque of the aorta extends into branch vessels. IMPRESSION: Evidence of chronic medical renal disease. No renal stones or hydronephrosis is seen bila terally. No suspicious new or acute finding identified on noncontrast CT.
== END | disposition home or self-care (01) ==
LOC: RADCTMAIN 09:24
PROVIDERS: ATTEND Urology
DX: N28.89 Other specified disorders of kidney and ureter (principal); N23 Unspecified renal colic; R31.1 Benign essential microscopic hematuria
CPT/HCPCS: 74176

== ENCOUNTER → 2023-09-24 | Outpatient (CLI) | payer MEDICARE ==
--- NOTE | 2023-09-27 11:20 | MM ---
Reason for Exam: Screening (asymptomatic). Last screening mammogram was performed 12 month(s) ago. Patient History: Menarche at age 12. First Full-Term at age 19. Postmenopausal. Patient used Hormonal Contraceptives for 3 years. 04/13/2002, Benign Stereotactic Core Biopsy on the right side. Risk Values: Mable 5 year model risk: 1.5%. NCI Lifetime model risk: 2.6%. Prior Study Comparison: 01/06/2019 Bilateral Screening Mammogram, [facility]. 02/15/2020 Bilateral Screening Mammogram, [facility]. 09/22/2022 Bilateral MG 3D screening mammo w/cad, [facility]. Tissue Density: There are scattered areas of fibroglandular density. Findings: Analyzed By CAD. Right breast: There is no suspicious group of microcalcifications or new suspicious mass. Left breast: There is no suspicious group of microcalcifications or new suspicious mass. Overall Assessment: Negative, BI-RAD 1 Management: Screening Mammogram of both breasts in [address] [facility] will attempt to contact patient to return for supplemental views and ultrasound if indicated. Patient should continue monthly self-breast exams. A clinical breast exam by your physician is recommended on an annual basis. This exam should not preclude additional follow-up of suspicious palpable abnormalities. Note on Mable scores and lifetime risk: 1. A Mable score greater than 3% is considered moderate risk. If this is the case, consider specialist referral to assess eligibility for a risk reducing agent. 2. If overall lifetime risk for the development of breast cancer is 20% or higher, the patient may qualify for future screening with alternating mammogram and breast MRI. Electronically signed and approved by: Ben Pete DO
== END | disposition home or self-care (01) ==
LOC: RADMAMWWP 11:53
PROVIDERS: ATTEND Internal Medicine Geriatric Medicine
DX: Z12.31 Encounter for screening mammogram for malignant neoplasm of breast (principal); Z78.0 Asymptomatic menopausal state
CPT/HCPCS: 77063; 77067

== ENCOUNTER → 2024-12-25 | Outpatient (CLI) | payer MEDICARE ==
[2024-12-25] MEDS: DENOSUMAB 60 MG/ML 1 ML SYRINGE SQ NR (12:56)
[2024-12-25 13:02] VITALS: BP 119/66; PULSE 55; RESP 16; TEMP 98.1
== END ==
LOC: PROCWHC3 12:30
PROVIDERS: ATTEND Internal Medicine Geriatric Medicine
DX: M81.0 Age-related osteoporosis without current pathological fracture (principal)
CPT/HCPCS: 96372; J0897